=== PATIENT | female | born 1960 | race Hispanic/Latino ===

== ENCOUNTER → 2023-02-20 | Outpatient (CLI) | payer MEDICARE, BC | END | disposition home or self-care (01) | LOC: RAH 10:18 | PROVIDERS: ATTEND Family Medicine | DX: E04.2 Nontoxic multinodular goiter (principal); E04.1 Nontoxic single thyroid nodule | CPT/HCPCS: 76536 ==

== ENCOUNTER 2024-05-01 15:46 | Emergency (ER) | payer MEDICARE, BC ==
[~2024-05-01] VITALS: Ht 170.2 cm; Wt 65.8 kg
[2024-05-01 16:17] LABS: BASOPHILS # (AUTO) 0.09 K/uL (0.00-0.20); EOSINOPHILS # (AUTO) 0.17 K/uL (0.00-0.70); EOSINOPHILS % (AUTO) 1.9 % (0.0-8.0); IMMATURE GRANULOCYTE ABSOLUTE 0.02 K/uL (0-1); LYMPHOCYTES # (AUTO) 2.2 K/uL (1.0-4.8); LYMPHOCYTES % (AUTO) 24.6 % (21.0-51.0); MEAN CORPUSCULAR HEMOGLOBIN 30.5 pg (27.0-33.0); MEAN CORPUSCULAR HGB CONC 33.2 g/dL (32.0-36.0); MEAN CORPUSCULAR VOLUME 91.9 fL (79-99); MONOCYTES # (AUTO) 0.6 K/uL (0.1-1.0); MONOCYTES % (AUTO) 6.4 % (3.0-13.0); NEUTROPHILS # (AUTO) 5.8 K/uL (1.8-7.7); NEUTROPHILS % (AUTO) 65.9 % (40.0-77.0); PLATELET COUNT (AUTO) 360 K/uL (130-400); RED BLOOD CELL COUNT(AUTO) 4.46 MIL/uL (4.00-5.50); RED CELL DISTRIBUTION WIDTH 13.1 % (11.0-15.5); WHITE BLOOD COUNT (AUTO) 8.9 K/uL (4.8-10.8)
--- NOTE | 2024-05-01 16:26 | ERN ---
General Chief Complaint: Chest Pain Stated Complaint: CP Time Seen by MD: 15:59 History of Present Illness Initial Comments 64-year-old female presents to the ED for evaluation of chest pain onset [employer]. Patient rates her pain a 5/10 and states her chest pain radiates to her neck. Patient mentioned symptoms started while she was watching TV. Allergies: Coded Allergies: No Known Drug Allergies (Unverified Allergy, Intermediate, 05/01/24) Past Medical History Past Medical History: Depression, Hypothyroid, Other Medical History Other: ADD Past Surgical History: None ROS Dictation Constitutional: Negative for fever,chills, and weight loss Eyes: Negative for injury, pain,redness, and discharge ENT: Negative for injury,pain or swelling Cardiovascular: Positive for chest pain negative for palpitations, and edema Respiratory: Negative for shortness of breath, cough, and wheezing, Abdomen/GI: Negative for abdominal pain, nausea, vomiting, diarrhea, and constipation Back: Negative for injury and pain : Negative for injury, bleeding and discharge MS/Extremity: Negative for injury and deformity Skin: Negative for rash, and discoloration Neuro: Negative for headache, weakness, numbness, tingling, and seizure Psych: Negative for suicide ideation, homicidal ideation, and hallucinations Physical Exam Physical Exam Dictation General: awake, alert, NAD Head/Face: Normocephalic, atraumatic Eyes: PERRL, EOMI, vision at baseline ENT: oral cavity clear, TMs clear, no signs of infection Neck: Trachea midline, supple, no nuchal rigidity Cardiovascular: RRR, normal S1/S2, No MRGs, no JVD Respiratory: CTAB, no respiratory distress, No rales or wheezes Abdomen: Soft, non-tender, non-distended, normal bowel sounds, no guarding or rebound. Skin: Warm, dry, normal turgor, no rash MS/Extremity: Pulses equal, no cyanosis, neurovascular intact, FROM Neuro: COAx4, GCS 15, strength 5/5, CN 2-12 intact, normal cerebellar exam, normal gait, Psych: Normal behavior, mood, and affect normal Results Laboratory and Microbiology Lab and Micro Result Laboratory Tests Test 05/01/24 16:08 05/01/24 16:30 White Blood Count 8.9 K/uL (4.8-10.8) Red Blood Count 4.46 MIL/uL (4.00-5.50) Hemoglobin 13.6 g/dL (12.0-16.0) Hematocrit 41.0 % (36-48) Mean Corpuscular Volume 91.9 fL (79-99) Mean Corpuscular Hemoglobin 30.5 pg (27.0-33.0) Mean Corpuscular Hemoglobin Concent 33.2 g/dL (32.0-36.0) Red Cell Distribution Width 13.1 % (11.0-15.5) Platelet Count 360 K/uL (130-400) Mean Platelet Volume 10.2 fL (7.5-10.5) Immature Granulocyte % (Auto) 0.2 % (0-1) Neutrophils (%) (Auto) 65.9 % (40.0-77.0) Lymphocytes (%) (Auto) 24.6 % (21.0-51.0) Monocytes (%) (Auto) 6.4 % (3.0-13.0) Eosinophils (%) (Auto) 1.9 % (0.0-8.0) Basophils (%) (Auto) 1.0 % (0.0-5.0) Neutrophils # (Auto) 5.8 K/uL (1.8-7.7) Lymphocytes # (Auto) 2.2 K/uL (1.0-4.8) Monocytes # (Auto) 0.6 K/uL (0.1-1.0) Eosinophils # (Auto) 0.17 K/uL (0.00-0.70) Basophils # (Auto) 0.09 K/uL (0.00-0.20) Absolute Immature Granulocyte (auto 0.02 K/uL (0-1) Nucleated Red Blood Cells 0.0 % (0.0-0.19) Sodium Level 136 mmol/L (136-145) Potassium Level 3.9 mmol/L (3.5-5.1) Chloride Level 101 mmol/L (101-111) Carbon Dioxide Level 30 mmol/L (21-32) Blood Urea Nitrogen 15 mg/dL (7-18) Creatinine 0.9 mg/dL (0.5-1.0) Glomerular Filtration Rate Calc 71 mL/min (>90) Random Glucose 96 mg/dL (70-105) Total Calcium 8.7 mg/dL (8.5-10.1) Total Creatine Kinase 225 U/L (21-232) B-Type Natriuretic Peptide 58 pg/mL (0-100) Troponin I < 0.05 ng/mL (0.00-0.05) Labs Reviewed?: Yes EKG/XRAY/US/CT/MRI EKG Comment EKG 05/01/2024 time 3:45 p.m. ventricular rate 81, OH 155, QRS D 95, QT 394. Sinus rhythm, probable left atrial enlargement. No STEMI X-RAY Comment CHEST X-RAY-[facility] MDM: Differential diagnosis: Chest pain, gastritis, GERD Previous outside records reviewed: Old ER visits. Need for hospitalization: Patient does not meet criteria for hospitalization. Need for emergency major/minor surgery: No Patient's prior external medical records from other ER visits were reviewed by me as indicated. Prior testing and results from previous visits were reviewed. Prior tests were taken into account with medical decision making and resource utilization, independent historian/historians were used to obtain complete me dical history. I independently interpreted the test that were performed, results were reviewed by me and considered findings on radiology if ordered. Medical management and examination interpretation discussions were had by me with other qualified healthcare professionals as indicated for the patient's care. PATIENT HAS BEEN STABLE THROUGHOUT ER VISIT SHE FEELS MUCH BETTER WILL BE DISCHARGED WITH A DIAGNOSIS OF GERD. PATIENT RECEIVED IV PROTONIX STATES HE FEELS BETTER AND WILL CONTINUE TAKING AT HOME. ED Course Orders Procedure Category Date Status Time Vital Signs Per CPOE 05/01/24 Transmitted Routine 15:52 B-Type Natriuretic LAB 05/01/24 Complete Peptide 15:52 Chest 1vw RAD 05/01/24 Taken 15:52 12 Lead Ekg Tracing- EKG 05/01/24 Logged Technical 15:52 Oxygen By Nc/Pulse Ox CPOE 05/01/24 Transmitted 15:52 Maintain Iv CPOE 05/01/24 Transmitted 15:52 Iv Insertion CPOE 05/01/24 Transmitted 15:52 Cardiac Monitoring CPOE 05/01/24 Transmitted 15:52 Pulse Oximetry With CPOE 05/01/24 Transmitted Vs And Prn 15:52 Cbc With Differential LAB 05/01/24 Complete 15:52 Activity: Br W/Brp CPOE 05/01/24 Transmitted With Assist 15:52 Creatine Kinase, Total LAB 05/01/24 Complete 15:52 Urinalysis Profile LAB 05/01/24 In Process 15:52 Troponin Poc Order LAB 05/01/24 Logged Only 15:52 Bedside Troponin-I LAB.ER 05/01/24 In Process (Poc) 15:52 Basic Metabolic Panel LAB 05/01/24 Complete 15:52 Pantoprazole 40mg Inj PHA 05/01/24 Complete (Protonix 40mg Inj 16:30 Current Medications Medications (Trade) Dose Ordered Sig/Mitzy Route PRN Reason Start Time Stop Time Status Last Admin Dose Admin Pantoprazole Sodium (PROTonix 40MG INJ) 40 mg ONCE ONCE IVP 05/01/24 16:30 05/01/24 16:44 DC 05/01/24 17:18 Vital Signs Date Time Temp Pulse Resp B/P (MAP) Pulse Ox O2 Delivery O2 Flow Rate FiO2 05/01/24 17:27 98.2 75 16 180/85 98 Room Air* 0 21 05/01/24 15:48 98.2 78 20 188/100 96 Room Air 0 HEART Score Response (Comments) Value History: Low suspicion (0) 0 EKG: Normal 0 Age: > 65yrs (+2) 2 Risk Factors: No known risk factors (0) 0 Initial Troponin: Normal limit (0) 0 HEART Score Risk: Low Risk for MACE (1-3) Total 2 DX & DISP Disposition: Discharge Departure Impression: Primary Impression: GERD (gastroesophageal reflux disease) Condition: Stable Scripts Pantoprazole Sodium (Protonix) 40 Mg Ectab 1 TAB PO DAILY for 30 Days, #30 TAB 0 Refills Prov: LEELEE RICHMOND MD 05/01/24 Additional Instructions: YOU HAVE BEEN REVIEWED IN THE EMERGENCY DEPARTMENT AT [facility] AFTER PRESENTING WITH CHEST PAIN. AFTER CONSIDERING YOUR HISTORY, YOUR RISK FACTORS, YOUR EKG AND YOUR BLOOD TEST TROPONINS, HAVE BEEN FOUND TO BE AT VERY LOW RISK LESS THAN (1 IN 100) OF HAVING A MAJOR ADVERSE CARDIAC EVENT (LIKE HEART ATTACK) IN THE NEAR FUTURE. IN THE " LOW RISK" GROUP, THE RISKS OF DOING FURTHER TESTS AND TREATMENT THE INPATIENT OUTWEIGHS THE BENEFITS. IN MANY PATIENTS IN THE LOW RISK GROUP FOR THE TEST OF ANY SORT OR UNNECESSARY, HOWEVER HE SHOULD DISCUSS THIS FURTHER WITH HIS GENERAL PRACTITIONER WHO WILL UNDERSTAND THE MEDICAL AND PERSONAL BACKGROUNDS BETTER. BECAUSE WE HAVE NEVER DECLARED YOU" NO RISK" WE WOULD SUGGEST. 1 RETURNING FOR MEDICAL REVIEW IF YOU HAVE FURTHER EPISODES OF CHEST PAIN/ARM PAIN OR OTHER CONCERNING SYMPTOMS LIKE DIZZINESS, COLLAPSE, PALPITATIONS OR SHORTNESS OF BREATH. 2. FOLLOWING UP WITH YOUR LOCAL DOCTOR WHO WILL CONSIDER THE NEED FOR FURTHER TESTING AND WILL ALSO ENSURE THAT ANY MODIFIABLE RISK FACTORS YOU MAY HAVE FOR HEART DISEASE ARE OPTIMALLY MANAGED. PATIENT WILL BE DISCHARGED IN STABLE CONDITION AT THE MOMENT DISCHARGE PATIENT STATES , NO CHEST PAIN Referrals: RAMIRO BRITTON MD (PCP) Time of Disposition: 17:46 I have reviewed, & agreed with my scribe's, documentation. (Entered by Andre Chaudhari, acting as a scribe for Dr. Richmond) I personally scribed for LEELEE RICHMOND MD ([place]ANDER) on 05/01/24 at 16:25. Electronically submitted by Andre Chaudhari ([place]). I personally scribed for LEELEE RICHMOND MD (ALEXANDER) on 05/01/24 at 16:45. Electronically submitted by Andre Chaudhari ([place]le). LEELEE RICHMOND MD May 01, 2024 16:25
[2024-05-01 16:29] LABS: CREATININE 0.9 mg/dL (0.5-1.0); POTASSIUM 3.9 mmol/L (3.5-5.1)
[2024-05-01 16:37] LABS: B-TYPE NATRIURETIC PEPTIDE 58 pg/mL (0-100)
[2024-05-01] MEDS: PANTOPrazole 40 MG/VIAL IVP ONE (17:18)
[2024-05-01 17:27] VITALS: BP 180/85; PULSE 75; RESP 16; TEMP 98.2; O2SAT 98
[2024-05-01] MEDS ORDERED: PANT40TA55 PO (17:47)
[2024-05-01 17:52] LABS: APPEARANCE,URINE CLEAR (CLEAR); BILIRUBIN,URINE NEGATIVE (NEGATIVE); COLOR,URINE COLORLESS (YELLOW); GLUCOSE, URINE (UA) NEGATIVE (NEGATIVE); KETONES,URINE NEGATIVE (NEGATIVE); LEUKOCYTE ESTERASE ,URINE 25 Leu/uL (NEGATIVE); NITRATE,URINE NEGATIVE (NEGATIVE); OCCULT BLOOD,URINE NEGATIVE (NEGATIVE); PROTEIN,URINE NEGATIVE (NEGATIVE); UROBILINOGEN,URINE 0.2 mg/dL (0.2-1.0)
[2024-05-01 17:55] LABS: ADD UA MICROSCOPIC YES
[2024-05-01 17:56] LABS: RBC,URINE 0-1 /HPF (0-1); SQUAMOUS EPITHELIAL CELL,UR RARE /HPF (0-2)
--- NOTE | 2024-05-01 19:04 | HMCIMG ---
Exam Type: CHEST 1VW Clinical Information: CHEST PAIN Comparison: None Findings: The lungs are clear of infiltrates. The heart is normal in size. The bony and soft tissue structures of the chest are unremarkable. Impression: Clear lungs.
--- NOTE | 2024-05-02 08:47 | EKG ---
[facility] Test Date: 2024-05-01 Test Time: 15:45:33 Pat Name: SUZANNE MAYES Department: ED Room: Gender: F Metal Furrer: 0723 : 1960 Requested By: LEELEE RICHMOND Order Number: [id number] Reading MD: Gustavo Schmidt Measurements Intervals [place] Rate: 81 P: 63 SC: 155 QRS: 40 QRSD: 95 T: 61 QT: 394 QTc: 457 Interpretive Statements Sinus rhythm Probable left atrial enlargement No previous ECG available for comparison Electronically Signed On 05-02-2024 20:16:28 PHARMACY OPERATIONS MANAGER by Gustavo Schmidt Please click the below link to view image of tracing.
== END 2024-05-01 18:01 | disposition home or self-care (01) ==
LOC: EDH 15:46
DX: K21.9 Gastro-esophageal reflux disease without esophagitis (principal); E03.9 Hypothyroidism, unspecified; F32.A Depression, unspecified
CPT/HCPCS: 99285; 96374; 71045; 82550; 84484; 80048; 83880; 85025; 81001; 36415; 93005; J2470

== ENCOUNTER 2024-07-01 08:39 | Emergency (ER) | payer MEDICARE ==
[~2024-07-01] VITALS: Ht 170.2 cm; Wt 68.0 kg
[~2024-07-01 08:39] MED LIST: PANT40TA55 PO
--- NOTE | 2024-07-01 08:48 | ERN ---
General Chief Complaint: FOOT INJURY/PAIN Stated Complaint: RT FOOT PAIN Time Seen by MD: 08:41 Source: patient History of Present Illness Initial Comments Patient is a 64-year-old female coming in to be evaluated right foot pain. Per patient she was getting off of her elliptical stepped incorrectly and now states that her right foot hurts. She localizes the pain to the midfoot region. She was able to ambulate but with the discomfort. Allergies: Coded Allergies: No Known Drug Allergies (Unverified Allergy, Intermediate, 05/01/24) Home Meds Active Scripts Pantoprazole Sodium (Protonix) 40 Mg Ectab, 1 TAB PO DAILY for 30 Days, #30 TAB 0 Refills Prov:LEELEE RICHMOND MD 05/01/24 Past Medical History Past Medical History: Depression, Hypothyroid, Other Medical History Other: ADD Past Surgical History: None Physical Exam Physical Exam Dictation VITAL SIGNS: Reviewed. GENERAL APPEARANCE: Alert, oriented x3, no acute distress, obese. HEAD AND FACE: Non-traumatic. EYES: PERRL, pink conjunctivas, eyelid no trauma, anterior chamber clear. EARS: Pinnas intact and no signs of trauma or erythema. Ear canals clear and no discharge. TMs no erythema. NOSE: No discharge, no bleeding. OROPHARYNX: Mouth normal, teeth no caries, tongue pink. Pharynx clear, no erythema. Tonsils no exudates, no abscesses noted. Mucous membrane moist. NECK: Supple, non-tender, no thyromegaly, no masses, no JVD, no bruits. BREAST: Deferred. CHEST: No tenderness, no crepitus, no paradoxical movement, no retractions. LUNGS: Clear, well-ventilated, symmetric, no rales, no wheezing, no rhonchi, no stridor, good breath sounds bilaterally. HEART: Regular rate, regular rhythm, no murmur, no gallops. VASCULAR: No peripheral edema. ABDOMEN: Soft, positive bowel sounds, nondistended, no guarding, nontender, no rebound, no masses no hepatomegaly, no splenomegaly, no Beckham's sign, no hernias. RECTAL: Deferred. GENITAL: Deferred. NEUROLOGICAL: Normal speech, gross motor function intact, gross sensory function intact. MUSCULOSKELETAL: Neck nontender, full range of motion, back nontender, full range of motion. EXTREMITIES: Nontender, full range of motion. Right foot pain on palpation mild swelling, SKIN: Color pink, dry, no turgor, no rash, no lacerations, no abrasions, no contusions. LYMPHATICS: Deferred. Results EKG/XRAY/US/CT/MRI X-RAY Comment X-ray foot- NAD MDM MDM: Differential diagnosis: Foot fracture, metatarsal fracture, foot sprain, ankle sprain, Patient is a 64-year-old female coming in to be evaluated for foot pain. X-ray did not disclose acute findings. Water she will be placed. I advised her appropriate follow up with PCP in 1-2 days and repeat x-ray in one week if pain persists. ED Course Orders Procedure Category Date Status Time Foot Comp 3+Vws Rt RAD 07/01/24 Taken 08:42 Vital Signs Date Time Temp Pulse Resp B/P (MAP) Pulse Ox O2 Delivery O2 Flow Rate FiO2 07/01/24 09:02 98.2 96 16 124/81 96 Room Air* 0 21 07/01/24 08:41 98.2 92 16 124/89 96 Room Air 0 DX & DISP Disposition: Discharge Departure Impression: Primary Impression: Right foot strain Additional Impression: Foot contusion Condition: Stable Scripts Naproxen (Naproxen) 375 Mg Tablet. 375 MG PO BID for 7 Days, #14 TAB Prov: LEELEE RICHMOND MD 07/01/24 Additional Instructions: FOLLOW-UP WITH PRIMARY CARE PROVIDER IN 1 TO 2 DAYS. TAKE MEDICATIONS DIRECTED HERE IN THE EMERGENCY ROOM. OKAY TO CONTINUE HOME MEDICATIONS UNLESS OTHERWISE DISCUSSED DURING YOUR VISIT IN THE EMERGENCY ROOM TODAY. RETURN TO YOUR NEAREST EMERGENCY ROOM IF SYMPTOMS WORSEN OR IF THERE IS NO IMPROVEMENT. CALL 911 IF YOU NEED IMMEDIATE ASSISTANCE. TAKE TYLENOL [id number] NEEDED AND IF NO CONTRAINDICATIONS ARE PRESENT. INCREASE ORAL HYDRATION. A WOUND CULTURE OR URINE CULTURE WAS ORDERED HERE IN THE EMERGENCY ROOM DEPARTMENT PLEASE FOLLOW-UP WITH PRIMARY CARE PROVIDER AND ADVISE THEM TO GET REPEAT PORTS FROM OUR FACILITY. IF YOU HAD ANY GEORGES WRAP/SPLINTS THAT WERE APPLIED HERE, PLEASE DO NOT REMOVE THEM UNTIL YOU SEE YOUR PRIMARY CARE OR SPECIALTY. Referrals: Referrals: RAMIRO BRITTON MD (PCP) NAPOLEON TRAN MD Time of Disposition: 09:22 LEELEE RICHMOND MD Jul 01, 2024 08:48
[2024-07-01] MEDS ORDERED: NAPR-1505 PO (09:23)
--- NOTE | 2024-07-01 09:24 | HMCIMG ---
FOOT COMP 3+VWS RT REASON: fall TECHNIQUE: 3 views were obtained. FINDINGS: There is no evidence of fracture or dislocation. There is no joint effusion. The soft tissues appear unremarkable. There is no evidence of a radiopaque foreign body. IMPRESSION: No acute findings.
[2024-07-01 10:37] VITALS: BP 130/90; PULSE 75; RESP 16; TEMP 97.9; O2SAT 97
== END 2024-07-01 10:43 | disposition home or self-care (01) ==
LOC: EDH 08:39
DX: S96.911A Strain of unspecified muscle and tendon at ankle and foot level, right foot, initial encounter (principal); E03.9 Hypothyroidism, unspecified; Z79.899 Other long term (current) drug therapy; X58.XXXA Exposure to other specified factors, initial encounter; Y93.89 Activity, other specified; Y92.89 Other specified places as the place of occurrence of the external cause; Y99.8 Other external cause status
CPT/HCPCS: 73630; 99283